=== PATIENT | female | born 1960 ===

== ENCOUNTER 2021-12-25 12:59 | Observation (INO) | payer OTHER, MEDICARE ==
[2021-12-25] MEDS ORDERED: IPRATROPIUM 0.02% NEBU 2.5 ML IH ONE (14:42)
[2021-12-25] MEDS ORDERED: MORPHINE 2 MG/1 ML INJ IV ONE (14:42)
[2021-12-25] MEDS ORDERED: ASPIRIN 325 MG TAB PO ONE (14:42)
[2021-12-25] MEDS ORDERED: ALBUTEROL 2.5 MG/3 ML NEBU IH ONE (14:42)
[2021-12-25] MEDS ORDERED: SODIUM CHLORIDE 0.9% 500 ML 500 ML IV ONE (14:42)
--- NOTE | 2021-12-25 14:48 | Emergency Department Report ---
ED Chest Pain HPI - General Chief Complaint: Chest Pain Stated Complaint: HYPOTENSION Time Seen by Provider: 12/25/21 14:24 Source: patient, EMS Mode of arrival: Stretcher Limitations: No Limitations - History of Present Illness Initial Comments: 61-year-old female with history of COPD, hypertension, MT (with indwelling defibrillator) presents to the emergency department complaining of several complaints that started yesterday including fatigue, near syncope, and left lateral chest and shoulder pain. Patient also complains of her blood pressure having been low, and believing that this feels like her last heart attack. The pain in her shoulder is severe, sharp, does not radiate, and does worsen with movement. Patient was given aspirin prior to arrival. Denies alleviating factors. - Related Data Allergies Allergy/AdvReac Type Severity Reaction Status Date / Time No Known Allergies Allergy Verified 12/25/21 13:12 Heart Score - HEART Score History: Moderately suspicious EKG: Non-specific Age: 45-65 Risk factors: > 3 risk factors or hx of atherosclerotic disease Troponin: < normal limit HEART Score: 5 - EKG Read Time Time EKG Completed: 14:46 EKG Read Time: 14:48 ED Review of Systems ROS: Stated complaint: HYPOTENSION Other details as noted in HPI Comment: All other systems reviewed and negative Constitutional: weakness. denies: chills, fever Eyes: denies: eye pain, eye discharge, vision change ENT: denies: ear pain, throat pain Respiratory: cough, shortness of breath, wheezing Cardiovascular: chest pain. denies: palpitations Endocrine: no symptoms reported Gastrointestinal: denies: abdominal pain, nausea, diarrhea Genitourinary: denies: urgency, dysuria, discharge Musculoskeletal: arthralgia (Left shoulder). denies: back pain, joint swelling Skin: denies: rash, lesions Neurological: denies: headache, weakness, paresthesias Psychiatric: denies: anxiety, depression Hematological/Lymphatic: denies: easy bleeding, easy bruising ED Past Medical Hx - Past Medical History Hx Hypertension: Yes Hx Heart Attack/AMI: Yes Hx Diabetes: Yes Hx COPD: Yes Additional medical history: Hyperlipidemia - Surgical History Hx Internal Defibrillator: Yes ED Physical Exam - General Limitations: No Limitations General appearance: alert, in no apparent distress - Head Head exam: Present: atraumatic, normocephalic - Eye Eye exam: Present: normal appearance, PERRL, EOMI - ENT ENT exam: Present: normal exam, mucous membranes moist - Neck Neck exam: Present: normal inspection - Respiratory Respiratory exam: Present: normal lung sounds bilaterally, wheezes, chest wall tenderness, prolonged expiratory. Absent: respiratory distress, rhonchi - Cardiovascular Cardiovascular Exam: Present: regular rate, normal rhythm. Absent: systolic murmur, diastolic murmur, rubs, gallop - GI/Abdominal GI/Abdominal exam: Present: soft, normal bowel sounds. Absent: distended, tenderness, guarding - Extremities Exam Extremities exam: Present: normal inspection, normal capillary refill. Absent: pedal edema, calf tenderness - Back Exam Back exam: Present: normal inspection - Neurological Exam Neurological exam: Present: alert, oriented X3 - Psychiatric Psychiatric exam: Present: normal affect, normal mood - Skin Skin exam: Present: warm, dry, intact, normal color. Absent: rash ED Course Vital Signs 12/25/21 12/25/21 12/25/21 14:12 14:16 14:30 Pulse Rate 76 73 Pulse Rate [ Anterior] Respiratory 20 23 Rate Respiratory Rate [Anterior] Blood Pressure 121/73 131/76 O2 Sat by Pulse 99 96 98 Oximetry 12/25/21 12/25/21 12/25/21 14:46 15:00 15:08 Pulse Rate 74 71 Pulse Rate [ 66 Anterior] Respiratory 23 15 Rate Respiratory 18 Rate [Anterior] Blood Pressure 129/77 127/74 O2 Sat by Pulse 98 97 98 Oximetry 12/25/21 12/25/21 12/25/21 15:16 15:30 15:46 Pulse Rate 66 70 66 Pulse Rate [ Anterior] Respiratory 16 19 19 Rate Respiratory Rate [Anterior] Blood Pressure 120/73 132/71 124/72 O2 Sat by Pulse 100 98 99 Oximetry 12/25/21 12/25/21 12/25/21 16:00 16:16 16:30 Pulse Rate 76 75 67 Pulse Rate [ Anterior] Respiratory 18 13 21 Rate Respiratory Rate [Anterior] Blood Pressure 127/73 134/71 141/73 O2 Sat by Pulse 99 99 98 Oximetry 12/25/21 12/25/21 12/25/21 16:46 17:00 17:16 Pulse Rate 74 64 69 Pulse Rate [ Anterior] Respiratory 14 16 15 Rate Respiratory Rate [Anterior] Blood Pressure 129/73 125/73 151/86 O2 Sat by Pulse 99 98 99 Oximetry 12/25/21 12/25/21 12/25/21 17:30 17:46 18:00 Pulse Rate 62 68 65 Pulse Rate [ Anterior] Respiratory 18 18 13 Rate Respiratory Rate [Anterior] Blood Pressure 142/78 136/79 121/70 O2 Sat by Pulse 99 100 99 Oximetry 12/25/21 12/25/21 12/25/21 18:16 18:30 18:46 Pulse Rate 71 75 66 Pulse Rate [ Anterior] Respiratory 16 19 17 Rate Respiratory Rate [Anterior] Blood Pressure 117/67 144/78 117/67 O2 Sat by Pulse 99 98 99 Oximetry 12/25/21 12/25/21 19:00 19:16 Pulse Rate 83 65 Pulse Rate [ Anterior] Respiratory 18 16 Rate Respiratory Rate [Anterior] Blood Pressure 134/74 132/70 O2 Sat by Pulse 91 99 Oximetry ED Medical Decision Making - Lab Data Result diagrams: 12/25/21 15:30 12/25/21 15:30 Critical care attestation.: If time is entered above; I have spent that time in minutes in the direct care of this critically ill patient, excluding procedure time. ED Disposition Clinical Impression: COPD exacerbation Chest pain Qualifiers: Chest pain type: other chest pain Qualified Code(s): R07.89 - Other chest pain Disposition: 09 ADMITTED INPATIENT Is pt being admited?: Yes Does the pt Need Aspirin: No Condition: Stable Instructions: Nonspecific Chest Pain, Adult, Chronic Obstructive Pulmonary Disease (ED) Referrals: DANUTA CALLOWAY MD [Primary Care Provider] - 3-5 Days
--- NOTE | 2021-12-25 15:19 | XRay Report ---
CHEST 1 VIEW 12/25/2021 3:02 PM INDICATION / CLINICAL INFORMATION: Chest Pain. COMPARISON: None available. FINDINGS: SUPPORT DEVICES: There is a left chest wall cardiac generator. HEART / MEDIASTINUM: Prominent mediastinal border. LUNGS / PLEURA: No significant pulmonary or pleural abnormality. No pneumothorax. ADDITIONAL FINDINGS: No significant additional findings. IMPRESSION: 1. Prominent mediastinal border, which can be seen in the setting of chronic thoracic aortic tortuosi ty. If there is concern for acute aortic injury, cross-sectional imaging is recommended. Signer Name: Carlos Dillon MD Signed: 12/25/2021 3:15 PM Workstation Name: [id number]
[2021-12-25 16:04] LABS: Alanine Aminotransferase 20 units/L (7-56); Albumin 4.1 g/dL (3.9-5); BUN/Creatinine Ratio 9; Blood Urea Nitrogen 13 mg/dL (7-17); Calcium 8.5 mg/dL (8.4-10.2); Hemolysis Index 7
[2021-12-25 16:07] LABS: Basophils # (Auto) 0.1 K/mm3 (0.0-0.1); Basophils % (Auto) 1.2 % (0.0-1.8); Eosinophils % (Auto) 0.6 % (0.0-4.3); Hematocrit 42.4 % (30.3-42.9); Hemoglobin 13.2 gm/dl (10.1-14.3); Lymphocytes # (Auto) 1.9 K/mm3 (1.2-5.4); Lymphocytes % (Auto) 34.3 % (13.4-35.0); Mean Corpuscular HGB Conc 31 % (30-34); Mean Corpuscular Volume 85 fl (79-97); Monocytes # (Auto) 0.5 K/mm3 (0.0-0.8); Monocytes % (Auto) 9.2 % (0.0-7.3); Platelet Count 222 K/mm3 (140-440); Red Blood Count 4.98 M/mm3 (3.65-5.03); Red Cell Distribution Width 14.8 % (13.2-15.2)
[2021-12-25 16:15] LABS: INR 0.96 (0.87-1.13); Partial Thromboplastin Time 28.1 Sec. (24.2-36.6)
--- NOTE | 2021-12-25 21:32 | History and Physical Report ---
History of Present Illness Date of examination: 12/25/21 Date of admission: 12/25/2021 Chief complaint: Shortness of breath and left shoulder pain for couple days History of present illness: 61-year-old female with history of hypertension, coronary artery disease and C OPD and s/p with indwelling defibrillator presents to the emergency room for increasing wheezing and shortness of breath and left shoulder pain. Patient thinks that she is having a heart attack because of her left shoulder pain before. Patient also wheezing and shortness of breath. No fever or chills. Heart Score - HEART Score History: Moderately suspicious EKG: Non-specific Age: 45-65 Risk factors: > 3 risk factors or hx of atherosclerotic disease Troponin: < normal limit HEART Score: 5 - EKG Read Time Time EKG Completed: 14:46 EKG Read Time: 14:48 - Past Medical History --Hypertension: Yes --Heart Attack/AMI: Yes --Diabetes: Yes --COPD: Yes --Additional medical history: Hyperlipidemia - Surgical History --Internal Defibrillator: Yes Review of Systems ROS: Stated complaint: HYPOTENSION Other details as noted in HPI Comment: All other systems reviewed and negative Constitutional: weakness. denies: chills, fever Eyes: denies: eye pain, eye discharge, vision change ENT: denies: ear pain, throat pain Respiratory: cough, shortness of breath, wheezing Cardiovascular: chest pain. denies: palpitations Endocrine: no symptoms reported Gastrointestinal: denies: abdominal pain, nausea, diarrhea Genitourinary: denies: urgency, dysuria, discharge Musculoskeletal: arthralgia (Left shoulder). denies: back pain, joint swelling Skin: denies: rash, lesions Neurological: denies: headache, weakness, paresthesias Psychiatric: denies: anxiety, depression Hematological/Lymphatic: denies: easy bleeding, easy bruising Medications and Allergies Allergies Allergy/AdvReac Type Severity Reaction Status Date / Time No Known Allergies Allergy Verified 12/25/21 13:12 Exam - Constitutional Vitals: Temp Pulse Resp BP Pulse Ox 65 16 132/70 99 12/25/21 19:16 12/25/21 19:16 12/25/21 19:16 12/25/21 19:16 General appearance: Present: no acute distress, well-nourished - EENT Eyes: Present: PERRL ENT: hearing intact, clear oral mucosa - Neck Neck: Present: supple, normal ROM - Respiratory Respiratory effort: normal Respiratory: bilateral: diminished, rhonchi, wheezing - Cardiovascular Heart rate: 80 Rhythm: regular Heart Sounds: Present: S1 & S2. Absent: rub, click - Extremities Extremities: no ischemia, pulses symmetrical, No edema Peripheral Pulses: within normal limits - Abdominal General gastrointestinal: Present: soft, non-tender, non-distended, normal bowel sounds Female genitourinary: Present: normal - Integumentary Integumentary: Present: clear, warm, dry - Musculoskeletal Musculoskeletal: gait normal, strength equal bilaterally - Psychiatric Psychiatric: appropriate mood/affect, intact judgment & insight - Neurologic Neurologic: CNII-XII intact, moves all extremities - Allied Health Allied health notes reviewed: nursing, case management HEART Score - HEART Score EKG: Non-specific Age: 45-65 Risk factors: > 3 risk factors or hx of atherosclerotic disease Troponin: Troponin T < 0.010 ng/mL (0.00-0.029) 12/25/21 15:30 Troponin: < normal limit - Critical Actions Critical Actions: 4-6 pts:12-16.6% risk of adverse cardiac event. Should be adm itted Results - Labs CBC & Chem 7: 12/26/21 04:41 12/26/21 04:41 Labs: Laboratory Last Values WBC 5.5 K/mm3 (4.5-11.0) 12/25/21 15:30 RBC 4.98 M/mm3 (3.65-5.03) 12/25/21 15:30 Hgb 13.2 gm/dl (10.1-14.3) 12/25/21 15:30 Hct 42.4 % (30.3-42.9) 12/25/21 15:30 MCV 85 fl (79-97) 12/25/21 15:30 MCH 26 pg (28-32) L 12/25/21 15:30 MCHC 31 % (30-34) 12/25/21 15:30 RDW 14.8 % (13.2-15.2) 12/25/21 15:30 Plt Count 222 K/mm3 (140-440) 12/25/21 15:30 Lymph % (Auto) 34.3 % (13.4-35.0) 12/25/21 15:30 [place] % (Auto) 9.2 % (0.0-7.3) H 12/25/21 15:30 Eos % (Auto) 0.6 % (0.0-4.3) 12/25/21 15:30 Baso % (Auto) 1.2 % (0.0-1.8) 12/25/21 15:30 Lymph # (Auto) 1.9 K/mm3 (1.2-5.4) 12/25/21 15:30 [place] # (Auto) 0.5 K/mm3 (0.0-0.8) 12/25/21 15:30 Eos # (Auto) 0.0 K/mm3 (0.0-0.4) 12/25/21 15:30 Baso # (Auto) 0.1 K/mm3 (0.0-0.1) 12/25/21 15:30 Seg Neutrophils % 54.7 % (40.0-70.0) 12/25/21 15:30 Seg Neutrophils # 3.0 K/mm3 (1.8-7.7) 12/25/21 15:30 PT 13.8 Sec. (12.2-14.9) 12/25/21 15:30 INR 0.96 (0.87-1.13) 12/25/21 15:30 APTT 28.1 Sec. (24.2-36.6) 12/25/21 15:30 D-Dimer 218.00 ng/mlDDU (0-234) 12/25/21 15:30 Sodium 143 mmol/L (137-145) 12/25/21 15:30 Potassium 4.3 mmol/L (3.6-5.0) 12/25/21 15:30 Chloride 111.3 mmol/L (98-107) H 12/25/21 15:30 Carbon Dioxide 20 mmol/L (22-30) L 12/25/21 15:30 Anion Gap 16 mmol/L 12/25/21 15:30 BUN 13 mg/dL (7-17) 12/25/21 15:30 Creatinine 1.4 mg/dL (0.6-1.2) H 12/25/21 15:30 Estimated GFR 38 ml/min 12/25/21 15:30 BUN/Creatinine Ratio 9 % 12/25/21 15:30 Glucose 105 mg/dL (65-100) H 12/25/21 15:30 Calcium 8.5 mg/dL (8.4-10.2) 12/25/21 15:30 Total Bilirubin 0.50 mg/dL (0.1-1.2) 12/25/21 15:30 AST 19 units/L (5-40) 12/25/21 15:30 ALT 20 units/L (7-56) 12/25/21 15:30 Alkaline Phosphatase 75 units/L (35-129) 12/25/21 15:30 Troponin T < 0.010 ng/mL (0.00-0.029) 12/25/21 15:30 Total Protein 6.0 g/dL (6.3-8.2) L 12/25/21 15:30 Albumin 4.1 g/dL (3.9-5) 12/25/21 15:30 Albumin/Globulin Ratio 2.2 % 12/25/21 15:30 Short CBC 12/25/21 12/26/21 Range/Units 15:30 04:41 WBC 5.5 4.1 L (4.5-11.0) K/mm3 Hgb 13.2 12.9 (10.1-14.3) gm/dl Hct 42.4 40.7 (30.3-42.9) % Plt Count 222 223 (140-440) K/mm3 BMP 12/25/21 12/26/21 15:30 04:41 Sodium 143 139 Potassium 4.3 4.8 Chloride 111.3 H 107.2 H Carbon Dioxide 20 L 21 L BUN 13 12 Creatinine 1.4 H 1.0 Glucose 105 H 176 H Calcium 8.5 8.5 Cardiac Enzymes 12/25/21 12/26/21 Range/Units 15:30 04:41 Troponin T < 0.010 < 0.010 (0.00-0.029) ng/mL Liver Function 12/25/21 12/26/21 Range/Units 15:30 04:41 Total Bilirubin 0.50 0.40 (0.1-1.2) mg/dL AST 19 16 (5-40) units/L ALT 20 17 (7-56) units/L Alkaline Phosphatase 75 74 (35-129) units/L Albumin 4.1 4.0 (3.9-5) g/dL - Imaging and Cardiology EKG: report reviewed (Sinus rhythm left atrial enlargement left ventricular hypertrophy anterior Q waves) Chest x-ray: report reviewed (No acute findings) Imaging and Cardiology: Chest x-ray prominent mediastinal border which can be seen in the setting of thoracic aortic toxicity. Assessment and Plan Advance Directives: Yes (Full code) VTE prophylaxis?: Chemical Plan of care discussed with patient/family: Yes - Patient Problems (1) COPD exacerbation Current Visit: Yes Status: Acute Plan to address problem: Patient initiated on duo nebs, on low-dose Solu-Medrol and IV antibiotics (2) Left shoulder pain Current Visit: Yes Status: Acute Qualifiers: Chronicity: acute Qualified Code(s): M25.512 - Pain in left shoulder Plan to address problem: Patient feels that her left shoulder pain is equal into her angina Serial troponins Meloxicam 15 mg once a day (3) HTN (hypertension) Current Visit: Yes Status: Chronic Qualifiers: Hypertension type: primary hypertension Qualified Code(s): I10 - Essential (primary) hypertension Plan to address problem: Continue antihypertensives and adjust medications (4) T2DM (type 2 diabetes mellitus) Current Visit: Yes Status: Chronic Qualifiers: Diabetes mellitus fci insulin use: unspecified fci insulin use status Plan to address problem: Coverage for now check Check hemoglobin A1c (5) HLD (hyperlipidemia) Current Visit: Yes Status: Chronic Qualifiers: Hyperlipidemia type: mixed hyperlipidemia Qualified Code(s): E78.2 - Mixed hyperlipidemia Plan to address problem: Continue statins (6) DVT prophylaxis Current Visit: Yes Status: Acute Plan to address problem: Anticoagulation and GI prophylaxis (7) Advance care planning Current Visit: Yes Status: Acute Plan to address problem: Disease education conducted, care plan discussed, diagnosis discussed and prognosis discussed. Patient is full code. Patient acknowledges understanding with care plan. +30 minutes.
[2021-12-25] MEDS ORDERED: METOCLOPRAMIDE 10 MG/2 ML INJ IV PRN (21:33)
[2021-12-25] MEDS ORDERED: ACETAMINOPHEN 325 MG TAB PO PRN (21:33)
[2021-12-25] MEDS ORDERED: MORPHINE 2 MG/1 ML INJ IV PRN (21:33)
[2021-12-25] MEDS ORDERED: ONDANSETRON 4 MG/2 ML INJ IV PRN (21:33)
[2021-12-25] MEDS ORDERED: IPRATROPIUM/ALBUTEROL SULFATE 3 ML AMPUL.NEB IH PRN (21:44)
[2021-12-25] MEDS ORDERED: ALBUTEROL 2.5 MG/3 ML NEBU IH PRN (21:53)
[2021-12-25] MEDS: HYDROmorphone 0.5 MG/0.5 ML INJ IV PRN (22:30)
[2021-12-25] MEDS: methylPREDNISolone Sod Succinate 125 MG/2 ML INJ IV SCH (22:33)
[2021-12-25] MEDS: HEPARIN 5,000 UNIT/1 ML VIAL SUB-Q SCH (22:34)
[2021-12-26 05:21] LABS: Basophils % (Auto) 0.8 % (0.0-1.8); Hematocrit 40.7 % (30.3-42.9); Hemoglobin 12.9 gm/dl (10.1-14.3); Lymphocytes # (Auto) 0.5 K/mm3 (1.2-5.4); Lymphocytes % (Auto) 12.5 % (13.4-35.0); Mean Corpuscular HGB Conc 32 % (30-34); Mean Corpuscular Volume 85 fl (79-97); Monocytes # (Auto) 0.1 K/mm3 (0.0-0.8); Monocytes % (Auto) 1.6 % (0.0-7.3); Platelet Count 223 K/mm3 (140-440); Red Blood Count 4.82 M/mm3 (3.65-5.03); Red Cell Distribution Width 14.6 % (13.2-15.2)
[2021-12-26 05:59] LABS: Alanine Aminotransferase 17 units/L (7-56); BUN/Creatinine Ratio 12; Blood Urea Nitrogen 12 mg/dL (7-17); Calcium 8.5 mg/dL (8.4-10.2); Hemolysis Index 6
[2021-12-26] MEDS: methylPREDNISolone Sod Succinate 125 MG/2 ML INJ IV SCH (06:38)
[2021-12-26] MEDS: HYDROmorphone 0.5 MG/0.5 ML INJ IV PRN (06:41)
[2021-12-26] MEDS ORDERED: REGADENOSON 0.4 MG/5 ML INJ IV ONE (06:59)
[2021-12-26] MEDS: IPRATROPIUM/ALBUTEROL SULFATE 3 ML AMPUL.NEB IH SCH ×3 (10:33→20:46)
[2021-12-26] MEDS: oxyCODONE /ACETAMINOPHEN 5-325MG TAB PO PRN ×2 (12:50→22:33)
[2021-12-26] MEDS: ASPIRIN 81 MG TAB CHEW PO SCH (12:51)
[2021-12-26] MEDS: HEPARIN 5,000 UNIT/1 ML VIAL SUB-Q SCH ×2 (12:51→22:31)
[2021-12-26] MEDS ORDERED: DEXTROSE 50% IN WATER (25GM) 50 ML SYRINGE IV PRN (13:17)
--- NOTE | 2021-12-26 13:17 | Progress Note ---
Assessment and Plan Assessment and plan: #Possible unstable angina #Left shoulder tenderness Unremarkable troponins x2 Continue meloxicam 15 mg daily Pending Lexiscan on 12/27/2021 #Acute hypoxic respiratory failure #Acute on chronic COPD exacerbation - currently requiring 2 L supplemental oxygen. Continue azithromycin 500mg daily (ends 12/28/2021) and rocephin 1g daily (ends 12/28/2021) Continue prednisone 40 mg daily Continue DuoNebs every 6 hours and albuterol nebs every 4 hours as needed #Non-insulin dependent type II diabetes mellitus - hemoglobin A1c: Pending - home regimen: Unknown - current regimen: Moderate SSI - blood glucose goal 140-180 while inpatient - continue to monitor #Hyperlipidemia #Hypertension - home medications: Unknown - current medications: Atorvastatin 40 mg daily - SBP goal <160 and DBP goal <90 while inpatient - continue to monitor #Advanced care planning -Disease education conducted, care plan discussed, diagnoses discussed, prognosis discussed, and patient acknowledges understanding with care plan -Time: +30 min Disposition Plan: Continue medical management Total Time Spent with Patient (Minutes): 45 minutes History Interval history: No acute events overnight. Hospitalist Physical - Constitutional Vitals: Temp Pulse Resp BP Pulse Ox 97.6 F 66 16 122/76 100 12/26/21 07:46 12/26/21 07:46 12/26/21 07:46 12/26/21 07:46 12/26/21 08:10 General appearance: Present: no acute distress, well-nourished - EENT Eyes: Present: PERRL, EOM intact ENT: hearing intact, clear oral mucosa, dentition normal - Neck Neck: Present: supple, normal ROM - Respiratory Respiratory effort: normal Respiratory: bilateral: wheezing (On 2 L nasal cannula) - Cardiovascular Rhythm: regular Heart Sounds: Present: S1 & S2 - Extremities Extremities: no ischemia, pulses intact, pulses symmetrical, No edema, normal temperature, normal color Peripheral Pulses: within normal limits - Abdominal General gastrointestinal: soft, non-tender, non-distended, normal bowel sounds - Integumentary Integumentary: Present: clear, warm, dry - Psychiatric Psychiatric: appropriate mood/affect, intact judgment & insight, cooperative - Neurologic Neurologic: CNII-XII intact, moves all extremities - Allied Health Allied health notes reviewed: nursing HEART Score - HEART Score EKG: Non-specific Age: 45-65 Risk factors: > 3 risk factors or hx of atherosclerotic disease Troponin: Troponin T < 0.010 ng/mL (0.00-0.029) 12/26/21 04:41 Troponin: < normal limit - Critical Actions Critical Actions: 4-6 pts:12-16.6% risk of adverse cardiac event. Should be admitted Results - Labs CBC & Chem 7: 12/26/21 04:41 12/26/21 04:41 Labs: Laboratory Last Values WBC 4.1 K/mm3 (4.5-11.0) L 12/26/21 04:41 RBC 4.82 M/mm3 (3.65-5.03) 12/26/21 04:41 Hgb 12.9 gm/dl (10.1-14.3) 12/26/21 04:41 Hct 40.7 % (30.3-42.9) 12/26/21 04:41 MCV 85 fl (79-97) 12/26/21 04:41 MCH 27 pg (28-32) L 12/26/21 04:41 MCHC 32 % (30-34) 12/26/21 04:41 RDW 14.6 % (13.2-15.2) 12/26/21 04:41 Plt Count 223 K/mm3 (140-440) 12/26/21 04:41 Lymph % (Auto) 12.5 % (13.4-35.0) L 12/26/21 04:41 [place] % (Auto) 1.6 % (0.0-7.3) 12/26/21 04:41 Eos % (Auto) 0.0 % (0.0-4.3) 12/26/21 04:41 Baso % (Auto) 0.8 % (0.0-1.8) 12/26/21 04:41 Lymph # (Auto) 0.5 K/mm3 (1.2-5.4) L 12/26/21 04:41 [place] # (Auto) 0.1 K/mm3 (0.0-0.8) 12/26/21 04:41 Eos # (Auto) 0.0 K/mm3 (0.0-0.4) 12/26/21 04:41 Baso # (Auto) 0.0 K/mm3 (0.0-0.1) 12/26/21 04:41 Seg Neutrophils % 85.1 % (40.0-70.0) H 12/26/21 04:41 Seg Neutrophils # 3.5 K/mm3 (1.8-7.7) 12/26/21 04:41 PT 13.8 Sec. (12.2-14.9) 12/25/21 15:30 INR 0.96 (0.87-1.13) 12/25/21 15:30 APTT 28.1 Sec. (24.2-36.6) 12/25/21 15:30 D-Dimer 218.00 ng/mlDDU (0-234) 12/25/21 15:30 Sodium 139 mmol/L (137-145) 12/26/21 04:41 Potassium 4.8 mmol/L (3.6-5.0) 12/26/21 04:41 Chloride 107.2 mmol/L (98-107) H 12/26/21 04:41 Carbon Dioxide 21 mmol/L (22-30) L 12/26/21 04:41 Anion Gap 16 mmol/L 12/26/21 04:41 BUN 12 mg/dL (7-17) 12/26/21 04:41 Creatinine 1.0 mg/dL (0.6-1.2) 12/26/21 04:41 Estimated GFR 56 ml/min 12/26/21 04:41 BUN/Creatinine Ratio 12 % 12/26/21 04:41 Glucose 176 mg/dL (65-100) H 12/26/21 04:41 Calcium 8.5 mg/dL (8.4-10.2) 12/26/21 04:41 Total Bilirubin 0.40 mg/dL (0.1-1.2) 12/26/21 04:41 AST 16 units/L (5-40) 12/26/21 04:41 ALT 17 units/L (7-56) 12/26/21 04:41 Alkaline Phosphatase 74 units/L (35-129) 12/26/21 04:41 Troponin T < 0.010 ng/mL (0.00-0.029) 12/26/21 04:41 Total Protein 6.1 g/dL (6.3-8.2) L 12/26/21 04:41 Albumin 4.0 g/dL (3.9-5) 12/26/21 04:41 Albumin/Globulin Ratio 1.9 % 12/26/21 04:41 [place]/IV: Voiding Method Toilet Active Medications - Current Medications Current Medications: Generic Name Dose Route Start Last Admin Trade Name Freq PRN Reason Stop Dose Admin Acetaminophen 650 mg 12/25/21 21:33 Acetaminophen 325 Mg Tab PO Q4H PRN Pain MILD(1-3)/Fever >100.5/REID Albuterol 2.5 mg 12/25/21 21:53 Albuterol 2.5 Mg/3 Ml Nebu IH Q3HRT PRN Wheezing Albuterol/Ipratropium 1 ampul 12/26/21 08:00 12/26/21 10:33 Ipratropium/Albuterol Sulfate 3 Ml Ampul.Neb IH Not Given QIDRT MICHAEL Aspirin 81 mg 12/26/21 10:00 12/26/21 12:51 Aspirin 81 Mg Tab Chew PO Not Given QDAY [facility] Heparin Sodium (Porcine) 5,000 unit 12/25/21 22:00 12/26/21 12:51 Heparin 5,000 Unit/1 Ml Vial SUB-Q Not Given Q12HR [facility] Hydromorphone HCl 0.5 mg 12/25/21 21:33 12/26/21 06:41 Hydromorphone 0.5 Mg/0.5 Ml Inj IV 0.5 mg Q3H PRN Administration Pain , Severe (7-10) Levofloxacin 750 mg 12/26/21 22:00 Levofloxacin 750 Mg Tab PO 12/29/21 22:01 Q24H [facility] Protocol Metoclopramide HCl 10 mg 12/25/21 21:33 Metoclopramide 10 Mg/2 Ml Inj IV Q6H PRN Nausea And Vomiting Morphine Sulfate 2 mg 12/25/21 21:33 Morphine 2 Mg/1 Ml Inj IV Q4H PRN Pain, Moderate (4-6) Ondansetron HCl 4 mg 12/25/21 21:33 Ondansetron 4 Mg/2 Ml Inj IV Q8H PRN Nausea And Vomiting Oxycodone/Acetaminophen 1 tab 12/25/21 21:33 12/26/21 12:50 Oxycodone /Acetaminophen 5-325mg Tab PO 1 tab Q6H PRN Administration Pain, Moderate (4-6) Prednisone 40 mg 12/27/21 10:00 Prednisone 20 Mg Tab PO QDAY MICHAEL Sodium Chloride 10 ml 12/25/21 22:00 12/26/21 12:51 Sodium Chloride 0.9% 10 Ml Flush Syringe IV Not Given BID MICHAEL Sodium Chloride 10 ml 12/25/21 21:33 Sodium Chloride 0.9% 10 Ml Flush Syringe IV PRN PRN LINE FLUSH
[2021-12-26] MEDS ORDERED: ALBUTEROL 2.5 MG/3 ML NEBU IH PRN (13:20)
[2021-12-26] MEDS ORDERED: IPRATROPIUM/ALBUTEROL SULFATE 3 ML AMPUL.NEB IH SCH (14:00)
[2021-12-26] MEDS: INSULIN REGULAR, HUMAN 100 UNITS/1 ML SUB-Q SCH ×2 (17:44→22:47)
[2021-12-26] MEDS: ARFORMOTEROL 15 MCG/2 ML NEBU IH SCH (20:45)
[2021-12-26] MEDS: BUDESONIDE 0.5 MG/2 ML NEBU IH SCH (20:46)
[2021-12-26] MEDS: levoFLOXacin 750 MG TAB PO SCH (22:31)
[2021-12-27] MEDS ORDERED: REGADENOSON 0.4 MG/5 ML INJ IV ONE (07:06)
[2021-12-27] MEDS: ARFORMOTEROL 15 MCG/2 ML NEBU IH SCH ×2 (08:06→21:07)
[2021-12-27] MEDS: IPRATROPIUM/ALBUTEROL SULFATE 3 ML AMPUL.NEB IH SCH ×3 (08:07→21:07)
[2021-12-27] MEDS: BUDESONIDE 0.5 MG/2 ML NEBU IH SCH ×2 (08:07→21:07)
[2021-12-27] MEDS: INSULIN REGULAR, HUMAN 100 UNITS/1 ML SUB-Q SCH ×4 (09:52→22:12)
[2021-12-27] MEDS: ASPIRIN 81 MG TAB CHEW PO SCH (11:37)
[2021-12-27] MEDS: predniSONE 20 MG TAB PO SCH (11:37)
[2021-12-27] MEDS: HEPARIN 5,000 UNIT/1 ML VIAL SUB-Q SCH ×2 (11:37→22:11)
--- NOTE | 2021-12-27 11:53 | Nuclear Medicine Report ---
APPROVED REPORT Exam: Nuclear Stress Test Indication: Chest pain [facility] Ht: 5 ft 4 in Wt: 150 lbs BSA: 1.73 m2 HR: 71 bpmBP: 132/74 mmHgBMI: 25.74 Rhythm: Sinus Rhythm Stress Test Details Stress Test: Pharmacologic stress testing performed using 0.4 mg of regadenoson per 5 mL given IV over 10 seconds. Reason for pharmacologic stress test: physical limitation. HR Resting HR: 68 bpm Max HR Achieved: 112 bpm Max Heart Rate (APMHR): 159 bpm Target HR (85% APMHR): 135 bpm % of APMHR: 70 Recovery HR: 95 bpm HR response to stress: Normal HR response to stress BP Resting BP: 104/63 mmHg Max BP: 132/81 mmHg Recovery BP: 106/65 mmHg BP response to stress: Normal blood pressure response to stress. ECG Resting ECG: Sinus Rhythm Stress ECG: Sinus Tachycardia ST Change: None Arrhythmia: None Recovery ECG: Sinus Rhythm Recovery ST Change: None Recovery Arrhythmia: None Clinical Reason for Termination: Completed protocol Stress Symptoms: None Stress ECG Conclusion No chest pain, no ST changes of ischemia with pharmacologic stress. NM EXAM: Myocardial Perfusion REST/STRESS Imaging Protocol: Rest Tc-99m/Stress Tc-99m 1 day Resting Data Rest SPECT myocardial perfusion imaging was performed in supine position 45 minutes following the intravenous injection of 10 mCi of Tc-99m Myoview. Time of rest injection: 0730 Date: 12/27/2021 Pharmacologic Stress Pharmacologic stress test was performed by injecting Regadenoson 0.4 mg IV push followed by the intravenous injection of 28 mCi of Tc-99m Myoview. Time of stress injection: 1000 Date: 12/27/2021 Gated Stress SPECT was performed 30 minutes after stress injection. The images were gated to evaluate regional wall motion and calculate left ventricular ejection fraction. Study Data TID = 1.00. Perfusion Nuclear Conclusion ECG Findings: negative for ischemia Clinical Findings: negative for ischemia Nuclear Findings: negative for ischemia Left Ventricular Function: abnormal Risk Study: low Left ventricle appears mildly dilated, with mild left ventricular systolic dysfunction, ejection fraction 40%. The perfusion study shows fairly homogeneous uptake of the tracer in all segments, no significant defects identified. Study appears consistent with a mild nonischemic cardiomyopathy, clinical correlation is recommended. Conclusion No chest pain, no ST changes of ischemia with pharmacologic stress.
--- NOTE | 2021-12-27 12:36 | Progress Note ---
Assessment and Plan Assessment and plan: #Possible unstable angina vs atypical chest pain #Left shoulder tenderness Unremarkable troponins x2 Continue meloxicam 15 mg daily Pending Lexiscan result on 12/27/2021 - XRay of L shoulder ordered #Acute hypoxic respiratory failure-resolved #Acute on chronic COPD exacerbation-improving - currently on RA Continue prednisone 40 mg daily Continue DuoNebs every 6 hours and albuterol nebs every 4 hours as needed - Pulmonary follow up as outpatient #Non-insulin dependent type II diabetes mellitus - hemoglobin A1c: Pending - home regimen: Unknown - current regimen: Moderate SSI - blood glucose goal 140-180 while inpatient - continue to monitor #Hyperlipidemia #Hypertension - home medications: Unknown - current medications: Atorvastatin 40 mg daily - SBP goal <160 and DBP goal <90 while inpatient - continue to monitor #Advanced care planning -Disease education conducted, care plan discussed, diagnoses discussed, prognosis discussed, and patient acknowledges understanding with care plan -Time: +30 min History Interval history: No acute events overnight. Patient reports continued left shoulder pain. Chest pain reproducible on examination. She denies associated shortness of breath or palpitations. Patient currently awaiting results of stress test. Hospitalist Physical - Physical exam Narrative exam: GENERAL: Well-developed well-nourished. In no acute distress. HEENT: Normocephalic. Atraumatic. NECK: Supple. CHEST/LUNGS: CTAB on room air. Parasternal TTP. HEART/CARDIOVASCULAR: RRR. No murmur, rubs or gallops appreciated. ABDOMEN: +BS. NT/ND. SKIN: No rashes noted. NEURO: No focal motor deficit. Follows all commands and is ambulatory. MUSCULOSKELETAL: No joint effusion EXTREMITIES: No cyanosis, clubbing or edema. PSYCH: Cooperative. - Constitutional Vitals: Temp Pulse Resp BP Pulse Ox 98.3 F 74 20 120/73 99 12/27/21 03:59 12/27/21 07:48 12/27/21 03:59 12/27/21 03:59 12/27/21 07:48 General appearance: Present: no acute distress, well-nourished HEART Score - HEART Score EKG: Non-specific Age: 45-65 Risk factors: > 3 risk factors or hx of atherosclerotic disease Troponin: Troponin T < 0.010 ng/mL (0.00-0.029) 12/26/21 04:41 Troponin: < normal limit - Critical Actions Critical Actions: 4-6 pts:12-16.6% risk of adverse cardiac event. Should be admitted Results - Labs CBC & Chem 7: 12/26/21 04:41 12/26/21 04:41 Labs: Laboratory Last Values WBC 4.1 K/mm3 (4.5-11.0) L 12/26/21 04:41 RBC 4.82 M/mm3 (3.65-5.03) 12/26/21 04:41 Hgb 12.9 gm/dl (10.1-14.3) 12/26/21 04:41 Hct 40.7 % (30.3-42.9) 12/26/21 04:41 MCV 85 fl (79-97) 12/26/21 04:41 MCH 27 pg (28-32) L 12/26/21 04:41 MCHC 32 % (30-34) 12/26/21 04:41 RDW 14.6 % (13.2-15.2) 12/26/21 04:41 Plt Count 223 K/mm3 (140-440) 12/26/21 04:41 Lymph % (Auto) 12.5 % (13.4-35.0) L 12/26/21 04:41 Kimble % (Auto) 1.6 % (0.0-7.3) 12/26/21 04:41 Eos % (Auto) 0.0 % (0.0-4.3) 12/26/21 04:41 Baso % (Auto) 0.8 % (0.0-1.8) 12/26/21 04:41 Lymph # (Auto) 0.5 K/mm3 (1.2-5.4) L 12/26/21 04:41 Kimble # (Auto) 0.1 K/mm3 (0.0-0.8) 12/26/21 04:41 Eos # (Auto) 0.0 K/mm3 (0.0-0.4) 12/26/21 04:41 Baso # (Auto) 0.0 K/mm3 (0.0-0.1) 12/26/21 04:41 Seg Neutrophils % 85.1 % (40.0-70.0) H 12/26/21 04:41 Seg Neutrophils # 3.5 K/mm3 (1.8-7.7) 12/26/21 04:41 PT 13.8 Sec. (12.2-14.9) 12/25/21 15:30 INR 0.96 (0.87-1.13) 12/25/21 15:30 APTT 28.1 Sec. (24.2-36.6) 12/25/21 15:30 D-Dimer 218.00 ng/mlDDU (0-234) 12/25/21 15:30 Sodium 139 mmol/L (137-145) 12/26/21 04:41 Potassium 4.8 mmol/L (3.6-5.0) 12/26/21 04:41 Chloride 107.2 mmol/L (98-107) H 12/26/21 04:41 Carbon Dioxide 21 mmol/L (22-30) L 12/26/21 04:41 Anion Gap 16 mmol/L 12/26/21 04:41 BUN 12 mg/dL (7-17) 12/26/21 04:41 Creatinine 1.0 mg/dL (0.6-1.2) 12/26/21 04:41 Estimated GFR 56 ml/min 12/26/21 04:41 BUN/Creatinine Ratio 12 % 12/26/21 04:41 Glucose 176 mg/dL (65-100) H 12/26/21 04:41 POC Glucose 242 mg/dL (70-105) H 12/26/21 22:33 Calcium 8.5 mg/dL (8.4-10.2) 12/26/21 04:41 Total Bilirubin 0.40 mg/dL (0.1-1.2) 12/26/21 04:41 AST 16 units/L (5-40) 12/26/21 04:41 ALT 17 units/L (7-56) 12/26/21 04:41 Alkaline Phosphatase 74 units/L (35-129) 12/26/21 04:41 Troponin T < 0.010 ng/mL (0.00-0.029) 12/26/21 04:41 Total Protein 6.1 g/dL (6.3-8.2) L 12/26/21 04:41 Albumin 4.0 g/dL (3.9-5) 12/26/21 04:41 Albumin/Globulin Ratio 1.9 % 12/26/21 04:41 Raygoza/IV: Voiding Method External Female Catheter Active Medications - Current Medications Current Medications: Generic Name Dose Route Start Last Admin Trade Name Freq PRN Reason Stop Dose Admin Acetaminophen 650 mg 12/25/21 21:33 Acetaminophen 325 Mg Tab PO Q4H PRN Pain MILD(1-3)/Fever >100.5/REID Albuterol 2.5 mg 12/26/21 13:20 Albuterol 2.5 Mg/3 Ml Nebu IH Q4HRT PRN Wheezing Albuterol/Ipratropium 1 ampul 12/26/21 20:00 12/27/21 08:07 Ipratropium/Albuterol Sulfate 3 Ml Ampul.Neb IH Not Given TIDRT MICHAEL Arformoterol Tartrate 15 mcg 12/26/21 20:00 12/27/21 08:06 Arformoterol 15 Mcg/2 Ml Nebu IH Not Given Q12HRT MICHAEL Aspirin 81 mg 12/26/21 10:00 12/27/21 11:37 Aspirin 81 Mg Tab Chew PO 81 mg QDAY MICHAEL Administration Atorvastatin Calcium 40 mg 12/26/21 22:00 12/26/21 22:31 Atorvastatin 40 Mg Tab PO 40 mg QHS MICHAEL Administration Budesonide 0.5 mg 12/26/21 20:00 12/27/21 08:07 Budesonide 0.5 Mg/2 Ml Nebu IH Not Given Q12HRT MICHAEL Dextrose 50 ml 12/26/21 13:17 Dextrose 50% In Water (25gm) 50 Ml Syringe IV Q30MIN PRN Hypoglycemia Protocol Heparin Sodium (Porcine) 5,000 unit 12/25/21 22:00 12/27/21 11:37 Heparin 5,000 Unit/1 Ml Vial SUB-Q 5,000 unit Q12HR MICHAEL Administration Hydromorphone HCl 0.5 mg 12/25/21 21:33 12/26/21 06:41 Hydromorphone 0.5 Mg/0.5 Ml Inj IV 0.5 mg Q3H PRN Administration Pain , Severe (7-10) Insulin Human Regular 0 units 12/26/21 16:30 12/27/21 09:52 Insulin Regular, Human 100 Units/1 Ml SUB-Q Not Given ACHS [facility] Protocol Levofloxacin 750 mg 12/26/21 22:00 12/26/21 22:31 Levofloxacin 750 Mg Tab PO 12/29/21 22:01 750 mg Q24H MICHAEL Administration Protocol Metoclopramide HCl 10 mg 12/25/21 21:33 Metoclopramide 10 Mg/2 Ml Inj IV Q6H PRN Nausea And Vomiting Morphine Sulfate 2 mg 12/25/21 21:33 12/27/21 11:34 Morphine 2 Mg/1 Ml Inj IV 2 mg Q4H PRN Administration Pain, Moderate (4-6) Ondansetron HCl 4 mg 12/25/21 21:33 Ondansetron 4 Mg/2 Ml Inj IV Q8H PRN Nausea And Vomiting Oxycodone/Acetaminophen 1 tab 12/25/21 21:33 12/26/21 22:33 Oxycodone /Acetaminophen 5-325mg Tab PO 1 tab Q6H PRN Administration Pain, Moderate (4-6) Prednisone 40 mg 12/27/21 10:00 12/27/21 11:37 Prednisone 20 Mg Tab PO 40 mg QDAY MICHAEL Administration Sodium Chloride 10 ml 12/25/21 22:00 12/26/21 22:31 Sodium Chloride 0.9% 10 Ml Flush Syringe IV 10 ml BID MICHAEL Administration Sodium Chloride 10 ml 12/25/21 21:33 Sodium Chloride 0.9% 10 Ml Flush Syringe IV PRN PRN LINE FLUSH
--- NOTE | 2021-12-27 13:09 | Electrocardiograph Report ---
[facility] Test Date: 2021-12-25 Test Time: 14:46:23 Pat Name: JYOTHI TOBIN Department: Room: A474 1 Gender: F Supervisor Post Wave: RONNY : 1960 Requested By: BRADLY ESCAMILLA Order Number: [id number] Reading MD: Lucho Georges Measurements Intervals [place] Rate: 69 P: 56 CT: 185 QRS: 18 QRSD: 110 T: 41 QT: 466 QTc: 500 Interpretive Statements Sinus rhythm Probable left atrial enlargement Left ventricular hypertrophy Anterior Q waves, possibly due to LVH No previous ECG available for comparison Electronically Signed On 12-27-2021 13:09:36 EDT by Lucho Georges
--- NOTE | 2021-12-27 13:13 | Electrocardiograph Report ---
[facility] Test Date: 2021-12-26 Test Time: 09:13:47 Pat Name: JYOTHI TOBIN Department: Room: A474 1 Gender: F Clinical Research Nurse Coordinator: NATASHA : 1960 Requested By: IDALIA HANSON Order Number: [id number] Reading MD: Lucho Georges Measurements Intervals [place] Rate: 56 P: 41 NV: 181 QRS: 7 QRSD: 115 T: 23 QT: 570 QTc: 551 Interpretive Statements Sinus rhythm Left ventricular hypertrophy Prolonged QT interval Compared to ECG 12/25/2021 14:46:23 No significant change Electronically Signed On 12-27-2021 13:12:57 EDT by Lucho Georges
--- NOTE | 2021-12-27 15:57 | XRay Report ---
Left shoulder 3 views INDICATION: Shoulder pain FINDINGS: There is glenohumeral and AC degenerative change. No acute fracture or dislocation. Signer Name: Tonio Zelaya MD Signed: 12/27/2021 3:52 PM Workstation Name: [id number]
[2021-12-27] MEDS: oxyCODONE /ACETAMINOPHEN 5-325MG TAB PO PRN (18:11)
[2021-12-27] MEDS: levoFLOXacin 750 MG TAB PO SCH (22:11)
--- NOTE | 2021-12-28 08:15 | Discharge Summary ---
Providers - Providers Date of Admission: 12/25/21 21:33 Date of discharge: 12/28/21 Attending physician: LINETTE FERNANDEZ MD Primary care physician: DANUTA CALLOWAY Hospitalization Reason for admission: COPD exacerbation, ACS rule out Condition: Stable Hospital course: 61-year-old female with history of hypertension, coronary artery disease and COPD who presented with shortness of breath and left shoulder pain. She was admitted for ACS rule out and COPD exacerbation. Nuclear stress test was negative for ischemia. X-ray of the left shoulder showed glenohumeral and AC degenerative changes. Patient's chest pain resolved and she was discharged home with a trial of NSAIDs for shoulder pain. Disposition: 01 HOME / SELF CARE / HOMELESS Final Discharge Diagnosis (Prints w/discharge instructions): Acute on chronic COPD exacerbation. Acute hypoxic respiratory failure. ACS ruled out. Atypical chest pain. Left shoulder arthritis. [id number]-fuvbbotyk type 2 diabetes. Hyperlipidemia. Hypertension Time spent for discharge: 30 minutes Core Measure Documentation - Palliative Care Palliative Care/ Comfort Measures: Not Applicable - Core Measures Any of the following diagnoses?: history only Exam - Physical Exam Narrative exam: GENERAL: Well-developed well-nourished. In no acute distress. HEENT: Normocephalic. Atraumatic. NECK: Supple. CHEST/LUNGS: CTAB on room air. Parasternal TTP. HEART/CARDIOVASCULAR: RRR. No murmur, rubs or gallops appreciated. ABDOMEN: +BS. NT/ND. SKIN: No rashes noted. NEURO: No focal motor deficit. Follows all commands and is ambulatory. MUSCULOSKELETAL: No joint effusion EXTREMITIES: No cyanosis, clubbing or edema. PSYCH: Cooperative. - Constitutional Vitals: Temp Pulse Resp BP Pulse Ox 99.1 F 73 18 149/88 97 12/28/21 04:47 12/28/21 04:47 12/28/21 04:47 12/28/21 04:47 12/28/21 04:47 Plan Care Plan Goals: Please follow-up with your primary care provider. Your stress test completed was negative and you did not have a heart attack. Please take all medications as they are prescribed to you. Follow up with: DANUTA CALLOWAY MD [Primary Care Provider] - 3-5 Days Prescriptions: AtorvaSTATin [Lipitor] 40 mg PO QHS 90 Days #90 tablet Aspirin [Aspirin BABY CHEW TAB] 81 mg PO QDAY 30 Days #30 tab.chew predniSONE [Deltasone] 40 mg PO QDAY 2 Days #4 tablet levoFLOXacin [Levaquin TAB] 750 mg PO Q24H 3 Days #3 tablet Meloxicam [Mobic] 7.5 mg PO QDAY 14 Days #14 tablet
[2021-12-28 08:56] VITALS: BP 160/85
[2021-12-28] MEDS: BUDESONIDE 0.5 MG/2 ML NEBU IH SCH (10:19)
[2021-12-28] MEDS: IPRATROPIUM/ALBUTEROL SULFATE 3 ML AMPUL.NEB IH SCH ×2 (10:19→13:54)
[2021-12-28] MEDS: ARFORMOTEROL 15 MCG/2 ML NEBU IH SCH (10:19)
[2021-12-28] MEDS: ASPIRIN 81 MG TAB CHEW PO SCH (11:39)
[2021-12-28] MEDS: HEPARIN 5,000 UNIT/1 ML VIAL SUB-Q SCH (11:39)
[2021-12-28] MEDS: predniSONE 20 MG TAB PO SCH (11:39)
[2021-12-28] MEDS: INSULIN REGULAR, HUMAN 100 UNITS/1 ML SUB-Q SCH (11:40)
[2021-12-28] MEDS: oxyCODONE /ACETAMINOPHEN 5-325MG TAB PO PRN (11:42)
== END 2021-12-28 16:40 | disposition home or self-care (01) ==
LOC: ED 12:59 → INTOOBSV 21:33 → 4A 21:33
PROVIDERS: ADMIT Internal Medicine; ATTEND Student in an Organized Health Care Education/Training Program
DX: J96.01 Acute respiratory failure with hypoxia (principal); J44.1 Chronic obstructive pulmonary disease with (acute) exacerbation; M25.512 Pain in left shoulder; R07.89 Other chest pain; I10 Essential (primary) hypertension; E11.9 Type 2 diabetes mellitus without complications; E78.2 Mixed hyperlipidemia; F17.210 Nicotine dependence, cigarettes, uncomplicated; Z79.82 Long term (current) use of aspirin; Z79.899 Other long term (current) drug therapy; Z98.890 Other specified postprocedural states
CPT/HCPCS: 36415; 71045; 73030; 78452; 80053; 82962; 84484; 85025; 85379; 85610; 85730; 93005; 93017; 94640; 94644; 94760; 96365; 96372; 96375; 96376; 99285; 99406; A9502; G0378; J1170; J1644; J1956; J2270; J2785; J2930; J7040; Q9967; J1815